=== PATIENT | male | born 1995 | race Two or more races ===

== ENCOUNTER 2016-09-03 23:19 | Emergency (ER) | payer MEDICAID ==
[~2016-09-03] VITALS: Ht 185.4 cm; Wt 129.3 kg
[~2016-09-03 23:19] MED LIST: ARIP5TAB10 PO; FENO160 PO
[2016-09-03 23:46] VITALS: BP_SYST 145
[2016-09-04] MEDS ORDERED: KETOROLAC TROMETHAMINE 60 MG/2 ML VIAL IM ONE (00:15)
[2016-09-04 00:55] VITALS: BP_SYST 132
== END 2016-09-04 00:55 | disposition home or self-care (01) ==
LOC: SED 23:19
DX: M54.5 Low back pain (principal); R03.0 Elevated blood-pressure reading, without diagnosis of hypertension; E78.00 Pure hypercholesterolemia, unspecified
CPT/HCPCS: 96372; 99283; J1885